=== PATIENT | male | born 2000 | race Two or more races ===

== ENCOUNTER 2021-02-16 23:00 | Emergency (ER) | payer MEDICAID ==
[~2021-02-16] VITALS: Ht 172.7 cm; Wt 80.0 kg
[2021-02-17] MEDS ORDERED: SODIUM CHLORIDE 0.9% 1,000 ML IV ONE
[2021-02-17 00:27] LABS: BASOPHILS % 0.4 % (0.0-2.0); EOSINOPHILS % 2.8 % (0.0-5.0); HEMATOCRIT. 40.6 % (42.0-52.0); HEMOGLOBIN. 14.1 g/dL (14.0-18.0); LYMPHOCYTES % 33.2 % (20.0-50.0); MEAN CORPUSCULAR VOLUME 89.2 fL (80.0-94.0); MEAN PLATELET VOLUME 7.3 fl (7.4-10.4); MONOCYTES % 12.1 % (2.0-8.0); NEUTROPHILS % 51.5 % (40.0-76.0); PLATELET 267 x1000/uL (130-400); RED BLOOD CELL COUNT 4.55 mill/uL (4.7-6.1); RED CELL DISTRIBUTION WIDTH 13.3 % (11.6-14.6)
[2021-02-17 00:33] LABS: CHLORIDE 109 mEq/L (98-107)
[2021-02-17 00:38] LABS: ETHANOL BLOOD < 10 mg/dL
[2021-02-17 01:57] LABS: CLARITY URINE CLEAR (CLEAR); COLOR URINE DARK YELLOW (YELLOW); KETONES URINE TRACE (NEGATIVE); LEUKOCYTE ESTERASE URINE NEGATIVE (NEGATIVE); NITRITE URINE NEGATIVE (NEGATIVE); OCCULT BLOOD URINE NEGATIVE (NEGATIVE); PROTEIN URINE NEGATIVE (NEGATIVE); SPECIFIC GRAVITY URINE 1.029 (1.005-1.030)
[2021-02-17 02:11] LABS: *AMPHETAMINES SCREEN URINE NEGATIVE (NEGATIVE); *BARBITURATES SCREEN URINE NEGATIVE (NEGATIVE); *BENZODIAZEPINES SCREEN URINE NEGATIVE (NEGATIVE); *COCAINE SCREEN URINE NEGATIVE (NEGATIVE)
[2021-02-17 02:12] LABS: CANNABINOID URINE SCREEN NEGATIVE (NEGATIVE); METHADONE URINE SCREEN NEGATIVE (NEGATIVE); OPIATES URINE SCREEN NEGATIVE (NEGATIVE); PHENCYCLIDINE URINE SCREEN NEGATIVE (NEGATIVE)
[2021-02-17 12:30] VITALS: BP 113/54
== END 2021-02-17 13:15 | disposition left against medical advice (07) ==
LOC: ER 23:00
DX: T39.1X2A Poisoning by 4-Aminophenol derivatives, intentional self-harm, initial encounter (principal); Y92.9 Unspecified place or not applicable; F17.210 Nicotine dependence, cigarettes, uncomplicated; R45.851 Suicidal ideations; R56.9 Unspecified convulsions; Z20.822 Contact with and (suspected) exposure to COVID-19
CPT/HCPCS: 36415; 80053; 80305; 80307; 80320; 80329; 81003; 82962; 85025; 96360; 96361; 99285; C9803; J7030; U0003; U0005; G0480

== ENCOUNTER 2021-03-03 21:46 | Emergency (ER) | payer MEDICAID ==
[~2021-03-03] VITALS: Ht 172.7 cm; Wt 69.0 kg
[2021-03-03] MEDS ORDERED: DIPHENHYDRAMINE 50MG/ML VIAL IM STA (22:42)
[2021-03-03] MEDS ORDERED: LORAZEPAM 2MG/ML CPJ IM STA (22:42)
[2021-03-03] MEDS ORDERED: HALOPERIDOL LACTATE 5MG/ML VIAL IM STA (22:42)
[2021-03-04 00:26] LABS: BASOPHILS % 0.6 % (0.0-2.0); EOSINOPHILS % 2.9 % (0.0-5.0); HEMATOCRIT. 41.2 % (42.0-52.0); HEMOGLOBIN. 14.4 g/dL (14.0-18.0); LYMPHOCYTES % 30.6 % (20.0-50.0); MEAN CORPUSCULAR HEMOGLOBIN 31.5 pg (28.0-32.0); MEAN CORPUSCULAR VOLUME 90.4 fL (80.0-94.0); MONOCYTES % 12.2 % (2.0-8.0); NEUTROPHILS % 53.7 % (40.0-76.0); PLATELET 234 x1000/uL (130-400); RED BLOOD CELL COUNT 4.56 mill/uL (4.7-6.1); RED CELL DISTRIBUTION WIDTH 12.9 % (11.6-14.6)
[2021-03-04 00:29] LABS: CHLORIDE 106 mEq/L (98-107)
[2021-03-04 00:33] LABS: ETHANOL BLOOD < 10 mg/dL
[2021-03-04 16:45] LABS: *AMPHETAMINES SCREEN URINE NEGATIVE (NEGATIVE); *BARBITURATES SCREEN URINE NEGATIVE (NEGATIVE); *BENZODIAZEPINES SCREEN URINE NEGATIVE (NEGATIVE); *COCAINE SCREEN URINE NEGATIVE (NEGATIVE); METHADONE URINE SCREEN NEGATIVE (NEGATIVE)
[2021-03-04 16:46] LABS: CANNABINOID URINE SCREEN PRESUMTIVE POSITIVE (NEGATIVE); OPIATES URINE SCREEN NEGATIVE (NEGATIVE); PHENCYCLIDINE URINE SCREEN NEGATIVE (NEGATIVE)
[2021-03-04] MEDS ORDERED: LORAZEPAM 2MG/ML CPJ IM STA (19:44)
[2021-03-04] MEDS ORDERED: HALOPERIDOL LACTATE 5MG/ML VIAL IM STA (19:44)
[2021-03-05 00:58] VITALS: BP 106/51
[2021-03-05 11:21] LABS: CLARITY URINE CLEAR (CLEAR); COLOR URINE DARK YELLOW (YELLOW); KETONES URINE NEGATIVE (NEGATIVE); LEUKOCYTE ESTERASE URINE NEGATIVE (NEGATIVE); NITRITE URINE NEGATIVE (NEGATIVE); OCCULT BLOOD URINE NEGATIVE (NEGATIVE); PROTEIN URINE NEGATIVE (NEGATIVE); SPECIFIC GRAVITY URINE 1.027 (1.005-1.030)
== END 2021-03-05 01:43 ==
LOC: ER 21:46
DX: R45.850 Homicidal ideations (principal); Z86.59 Personal history of other mental and behavioral disorders
CPT/HCPCS: 36415; 81003; 96372; 99285; J1200; J1630; J2060

== ENCOUNTER 2021-03-11 18:04 | Emergency (ER) | payer MEDICAID ==
[~2021-03-11] VITALS: Ht 172.7 cm; Wt 80.0 kg
[2021-03-11 20:21] LABS: BASOPHILS % 0.3 % (0.0-2.0); EOSINOPHILS % 2.2 % (0.0-5.0); HEMATOCRIT. 41.5 % (42.0-52.0); HEMOGLOBIN. 14.2 g/dL (14.0-18.0); LYMPHOCYTES % 29.3 % (20.0-50.0); MEAN CORPUSCULAR VOLUME 90.8 fL (80.0-94.0); MONOCYTES % 12.9 % (2.0-8.0); NEUTROPHILS % 55.3 % (40.0-76.0); PLATELET 244 x1000/uL (130-400); RED BLOOD CELL COUNT 4.57 mill/uL (4.7-6.1); RED CELL DISTRIBUTION WIDTH 13.4 % (11.6-14.6)
[2021-03-11 20:25] LABS: CHLORIDE 107 mEq/L (98-107)
[2021-03-11 20:29] LABS: ETHANOL BLOOD < 10 mg/dL
[2021-03-12 05:30] VITALS: BP 112/70
== END 2021-03-12 06:07 | disposition home or self-care (01) ==
LOC: ER 18:04
DX: R45.850 Homicidal ideations (principal)
CPT/HCPCS: 36415; 80053; 80320; 85025; 99283; G0480

== ENCOUNTER 2021-05-25 19:40 | Emergency (ER) | payer MEDICAID ==
[~2021-05-25] VITALS: Ht 175.3 cm; Wt 73.0 kg
[2021-05-25 21:50] LABS: BASOPHILS % 0.4 % (0.0-2.0); EOSINOPHILS % 2.7 % (0.0-5.0); HEMATOCRIT. 42.7 % (42.0-52.0); HEMOGLOBIN. 14.4 g/dL (14.0-18.0); LYMPHOCYTES % 31.8 % (20.0-50.0); MEAN CORPUSCULAR HEMOGLOBIN 30.7 pg (28.0-32.0); MEAN CORPUSCULAR VOLUME 91.2 fL (80.0-94.0); MEAN PLATELET VOLUME 8.6 fl (7.4-10.4); MONOCYTES % 9.2 % (2.0-8.0); NEUTROPHILS % 55.9 % (40.0-76.0); PLATELET 248 x1000/uL (130-400); RED BLOOD CELL COUNT 4.68 mill/uL (4.7-6.1); RED CELL DISTRIBUTION WIDTH 13.7 % (11.6-14.6)
[2021-05-25 21:56] LABS: CHLORIDE 107 mEq/L (98-107)
[2021-05-25 22:00] LABS: ETHANOL BLOOD < 10 mg/dL
[2021-05-25 23:06] LABS: *BARBITURATES SCREEN URINE NEGATIVE (NEGATIVE)
[2021-05-25 23:07] LABS: *AMPHETAMINES SCREEN URINE NEGATIVE (NEGATIVE); *BENZODIAZEPINES SCREEN URINE NEGATIVE (NEGATIVE); *COCAINE SCREEN URINE NEGATIVE (NEGATIVE); CANNABINOID URINE SCREEN PRESUMTIVE POSITIVE (NEGATIVE); METHADONE URINE SCREEN NEGATIVE (NEGATIVE); OPIATES URINE SCREEN NEGATIVE (NEGATIVE); PHENCYCLIDINE URINE SCREEN NEGATIVE (NEGATIVE)
[2021-05-26] MEDS: CITALOPRAM HYDROBROMIDE 10MG TABLET PO SCH (09:20)
[2021-05-26] MEDS: ARIPIPRAZOLE 5MG TABLET PO SCH (09:21)
[2021-05-27] MEDS: CITALOPRAM HYDROBROMIDE 10MG TABLET PO SCH (08:58)
[2021-05-27] MEDS: ARIPIPRAZOLE 5MG TABLET PO SCH (08:58)
[2021-05-27 16:36] VITALS: BP 129/73
== END 2021-05-27 16:36 | disposition home or self-care (01) ==
LOC: ER 19:40
DX: F20.9 Schizophrenia, unspecified (principal); R45.851 Suicidal ideations; F12.10 Cannabis abuse, uncomplicated; F15.10 Other stimulant abuse, uncomplicated; Z75.1 Person awaiting admission to adequate facility elsewhere; Z20.822 Contact with and (suspected) exposure to COVID-19
CPT/HCPCS: 36415; 80053; 80305; 80307; 80320; 80329; 85025; 93005; 99285; C9803; U0003; U0005; G0480